=== PATIENT | female | born 1970 | race Caucasian/White ===

== ENCOUNTER 2020-12-22 21:18 | Emergency (ER) | payer OTHER ==
[2020-12-22] MEDS ORDERED: CLEOCIN300 MG PO (22:03)
== END 2020-12-22 22:12 | disposition home or self-care (01) ==
LOC: FER 21:18
DX: L03.114 Cellulitis of left upper limb (principal); F17.200 Nicotine dependence, unspecified, uncomplicated
CPT/HCPCS: 99283